=== PATIENT | male | born 1995 | race Caucasian/White ===

== ENCOUNTER 2017-02-16 22:54 | Emergency (ER) | payer OTHER ==
[~2017-02-16] VITALS: Ht 172.7 cm; Wt 65.9 kg
[2017-02-16] MEDS ORDERED: AZITHROMYCIN 250 MG TAB PO ONE (23:45)
[2017-02-16] MEDS ORDERED: cefTRIAXone SOD 1 GM VIAL (J0696) IM ONE (23:45)
[2017-02-16] MEDS ORDERED: PHENAZOPYRIDINE 100 MG TAB PO ONE (23:45)
[2017-02-16] MEDS ORDERED: PYRI1TAB5 PO (23:48)
[2017-02-17 00:24] VITALS: BP 122/56
== END 2017-02-17 00:26 | disposition home or self-care (01) ==
LOC: M ED 22:54
DX: Z20.2 Contact with and (suspected) exposure to infections with a predominantly sexual mode of transmission (principal); R30.0 Dysuria; N34.1 Nonspecific urethritis; R36.9 Urethral discharge, unspecified; F17.200 Nicotine dependence, unspecified, uncomplicated; Z88.0 Allergy status to penicillin
CPT/HCPCS: 81001; 87086; 96372; 99283; J0696